=== PATIENT | female | born 1965 | race Caucasian/White ===

== ENCOUNTER 2016-04-14 13:54 | Emergency (ER) | payer SELFPAY ==
[2016-04-14] MEDS ORDERED: DIPH,PERTUSS,TET(ADACEL) VAC/PF 0.5 ML (Tdap) IM ONE (13:57)
[2016-04-14] MEDS ORDERED: MORPHINE SULFATE 4 MG/1 ML IVP ONE (13:57)
[2016-04-14] MEDS ORDERED: ONDANSETRON 4 MG/2 ML VIAL IVP ONE (13:57)
[2016-04-14] MEDS ORDERED: Piperacillin/Tazobactam Inj 3.375 GM in Sodium Chloride 0.9% 100 ML IV ONE (13:57)
--- NOTE | 2016-04-14 14:05 | PDOC ---
Skin Rash/Insect/Abscess HPI - General Chief Complaint: Laceration / Wound Stated Complaint: LEFT HAND AVULSION, RIGHT HAND ABRASION Date Seen by Provider: 04/14/16 Time Seen by Provider: 14:00 Source: POSITIVE: Patient, RN/MD Exam Limitations: POSITIVE: No limitations Nurse's Notes Reviewed & Considered: Yes - History of Present Illness Initial Comments: Patient comes in today with a significant evulsion injury to her left ring finger. 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 This resulted in an evulsion laceration from the mid portion of her ring finger circumferentially. She has good sensations distally but is complaining of significant pain and decreased range of motion secondary to pain in addition she has a minor evulsion to the dorsum of the right hand that occurred 2 cow's earlier. Patient initially presented to the medical office building, was seen by PA, and directed here to the emergency department. Have you received a tetanus shot in the past 10 years?: No Body Location Affected: REPORTS: Upper Extremity (L), Upper Extremity (R) Timing: REPORTS: Abrupt Duration: 1 hour Identified Causes: REPORTS: Yes When Exposed: REPORTS: Just Prior to Sx Onset Where Exposed: REPORTS: Work Suspected Etiology: REPORTS: Other (Livestock) Similar Symptoms Previously: No Recent Care Received: REPORTS: Denies Any Prior Injuries Related to Current Complaint?: No - Patient Allergies Allergies/Adverse Reactions: Allergies Allergy/AdvReac Type Severity Reaction Status Date / Time No Known Allergies Allergy Verified 04/14/16 14:33 ROS - Limitations ROS Limitations: No Limitations Constitution: REPORTS: Denies Symptoms Cardiovascular: REPORTS: Denies Cardiac Symptoms Respiratory: REPORTS: Denies Resp Symptoms Neurological: REPORTS: Denies Neuro Symptoms Gastrointestinal: REPORTS: Denies GI Symptoms Endocrine: REPORTS: Denies Symptoms Musculoskeletal: REPORTS: Joint Pain Genitourinary: REPORTS: Denies Symptoms Eyes: REPORTS: Denies Symptoms Skin: REPORTS: Other (Circumferential evulsion laceration fourth finger of the left hand.) Lympathic: REPORTS: Denies Lympathic Symptoms Immunologic: POSITIVE: Denies Symptoms Psychiatric: POSITIVE: Denies Psych Symptoms Skin Rash/Insect/Abscess Exam - General Appearance General Appearance: REPORTS: Alert, Cooperative, Moderate Distress - Skin Skin: REPORTS: Warm, Dry, Other (Circumferential laceration skin of the fifth finger left hand.) Skin Location: REPORTS: Other (Fifth finger left hand) - Extremities Extremity: Non-Tender: (RLE), (LLE), Normal ROM: (RLE), (LLE), (RUE), Normal Inspection: (RLE), (LLE), Tender: (RUE), (LUE) - HEENT HEENT: POSITIVE: Head Inspection Nml, Eyes Inspection Nml, Ears Inspection Nml, Nose Inspection Nml, PERRL, EOMI - Neck Neck: REPORTS: Trachea Midline - Respiratory Respiratory: REPORTS: No Respiratory Distress, Breath Sounds Normal - Cardiovascular Cardiovascular: REPORTS: Regular Rate and Rhythm, Heart Sounds Normal - Abdomen Abdomen: Soft: (All Quadrants), Normal Bowel Sounds: (All Quadrants), Denies Tenderness: (All Quadrants) - Neurological / Psychological Neurological: REPORTS: Affect Apporpriate, Oriented X3, Motor Normal, Sensation Normal Skin Rash/Abscess Progress - Results Reviewed by me Xrays/CTs/US Reviewed by me: Yes Discussed with Radiologist: Yes Labs Normal Except for:: Abnormal Lab Results: Entire Visit 04/14/16 Range/Units 15:05 Hgb 11.4 L (12.0-16.0) g/dL Hct 34.8 L (37.0-47.0) % MCH 26.7 L (27-31) PG MCHC 32.8 L (33-37) g/dL RDW Coeff of Soy 15.4 H (11.5-14.5) % Neut % (Auto) 81.1 H (50-80) % Lab Results Reviewed: Yes - Patient's Progress Pain Medication Addressed: POSITIVE: Yes Re-Examine Time:: 15:25 Status: POSITIVE: Improved MDM / ED Course: Patient brought to the emergency Department, examined, IV was started, blood drawn and sent to the lab for studies, radiographic examinations obtained. Patient received morphine which was insufficient to alleviate her pain, she then received Dilaudid which significantly helped. She received a liter of fluid, and Zofran. Laboratory findings: Unremarkable X-ray findings: Per my interpretation shows open comminuted fracture of the middle phalanges. Fourth Finger, left hand. Next Assessment: Avulsion injury with open fracture. Plan: Transfer to tertiary care facility, [facility] [place]. I was able to contact Dr. Elliott and Dr. Ceballos who have accepted the patient for transfer. - Consult Counseled: POSITIVE: Patient, Family, RE: Lab Results, RE: Radiology Results, RE : DX, RE: Need for F/U Patient Care Time - Estimated PCT Patient Care Time (In Minutes): 30 Vital Signs - VS Reviewed Vital Signs Reviewed: Yes Discharge Clinical Impression: Open fracture Discharge Disposition: Transferred to Tertiary Care Facility Condition: Stable Patient Instructions Given at Discharge: Laceration (ED) Date Decision to Transfer to Another Facility: 04/14/16 Time Decision to Transfer to Another Facility: 15:26
[2016-04-14] MEDS: Sodium Chloride 0.9% 1,000 ML PRIMARY IV ONE ×2 (14:20→15:17)
[2016-04-14] MEDS: HYDROmorphone 2 MG/1 ML IVP ONE ×2 (14:40→16:00)
[2016-04-14 15:10] LABS: BASOPHILS # (AUTO) 0.04 10*3/UL; BASOPHILS % (AUTO) 0.4 % (0-1); EOSINOPHILS % (AUTO) 1.7 % (0-8); HEMATOCRIT 34.8 % (37.0-47.0); HEMOGLOBIN 11.4 g/dL (12.0-16.0); IMM GRAN % (AUTO) 0.1 % (0-5); IMM GRAN# (AUTO) 0.01 10*3/UL; LYMPHOCYTES # (AUTO) 1.09 10*3/uL; LYMPHOCYTES % (AUTO) 10.8 % (10-50); MEAN CORPUSCULAR HEMOGLOBIN 26.7 PG (27-31); MEAN CORPUSCULAR HGB CONC 32.8 g/dL (33-37); MEAN PLATELET VOLUME 10.1 FL (7.4-12.2); MONOCYTES # (AUTO) 0.59 10*3/UL (0.3-0.8); MONOCYTES % (AUTO) 5.9 % (5-15); NEUTROPHILS # (AUTO) 8.16 10*3/UL; NEUTROPHILS % (AUTO) 81.1 % (50-80); RDW COEFFICIENT OF VARIATION 15.4 % (11.5-14.5); RED BLOOD COUNT 4.27 10^6/uL (4.20-5.40); WHITE BLOOD COUNT 10.06 10^3/uL (4.8-10.8)
[2016-04-14 15:14] LABS: PLATELET MORPHOLOGY COMMENT NORMAL MORPHOLOGY (NORM)
[2016-04-14 15:22] LABS: ASPARTATE AMINO TRANSFERASE 18 IU/L (8-39); BILIRUBIN,TOTAL 0.5 mg/dL (0.3-1.2); BLOOD UREA NITROGEN 24 mg/dL (7-22); BUN/CREATININE RATIO 34.28 (6-20); CALCIUM 9.1 mg/dL (8.7-10.7); CHLORIDE 104 meq/L (98-112); CREATININE 0.7 mg/dL (0.50-1.20); EST GLOMERULAR FILTRATION > 60 (>60 ml/min/1.73m(2)); GLUCOSE 125 mg/dL (78-110); POTASSIUM 3.4 meq/L (3.8-5.2); SODIUM 138 meq/L (135-145); TOTAL PROTEIN 6.8 g/dL (6.1-8.0)
--- NOTE | 2016-04-14 15:58 | DI ---
LEFT FINGERS, 04/14/2016 1:57 PM: Clinical History: Trauma. Previous Exam: None at this facility. 3 views are submitted. There is a dressing artifact over the ring and little fingers and presumably t his patient has an open wound. There is a severely comminuted nondisplaced intra-articular fracture o f the middle phalanx of the ring finger. There is approximately 50% surface involvement of the articu lar surface of the distal head of the middle phalanx. There are least 2 longitudinal fractures throug h the shaft of the middle phalanx. The proximal phalanx of the long finger has a lucency in the midpo rtion of the shaft that extends into the lateral condyle and this may be related to an old injury. Th e remainder of the exam is normal. Readin. Comminuted intra-articular fracture of the middle phalanx of the ring finger, nondisplaced, and p robably open. There is 50% involvement of the articular surface of the distal head of the middle phal anx. 2. Probable old fracture involving the proximal phalanx of the middle finger. The remainder of the e xam is normal.
[2016-04-14 17:54] VITALS: RESP 16; TEMP 98.4
== END 2016-04-14 16:05 | disposition short-term general hospital (02) ==
LOC: ER 13:54
DX: S62.665B Nondisplaced fracture of distal phalanx of left ring finger, initial encounter for open fracture (principal); S61.217A Laceration without foreign body of left little finger without damage to nail, initial encounter; S60.511A Abrasion of right hand, initial encounter; W23.1XXA Caught, crushed, jammed, or pinched between stationary objects, initial encounter
CPT/HCPCS: 36415; 73140; 80053; 85025; 90471; 96361; 96365; 96375; 99285 ×2; J2543; J1170; J2270; J2405; J7030; J7050